=== PATIENT | male | born 1985 | race Caucasian/White ===

== ENCOUNTER 2017-08-30 16:52 | Observation (INO) | payer MEDICAID ==
[2017-08-30] MEDS ORDERED: Ketorolac 30 MG/ML SDV IVPUSH PRN (18:34)
[2017-08-30] MEDS ORDERED: Ondansetron 4 MG/2 ML SDV IV PRN (18:34)
[2017-08-30] MEDS ORDERED: Atropine/Diphenoxylate 0.025-2.5 MG Tab PO PRN (18:41)
[2017-08-30] MEDS ORDERED: Dextrose 5%-0.45% NaCl 1,000 ML IV SCH (18:45)
[2017-08-30] MEDS: Dextrose 5%-0.9% NaCl 1,000 ML IV SCH (19:20)
[2017-08-30] MEDS: Potassium Bicarbonate/Potassium Chloride 25 MEQ Tab.Eff PO SCH (19:20)
[2017-08-30] MEDS: Omeprazole 20 MG Cap.CR PO SCH (19:20)
[2017-08-31] MEDS: Dextrose 5%-0.9% NaCl 1,000 ML IV SCH (05:30)
[2017-08-31 05:41] VITALS: BP 110/71
[2017-08-31 07:54] LABS: CHLORIDE,CL 108 mmol/L (98-115); SODIUM,NA 143 mmol/L (136-145)
[2017-08-31] MEDS: Omeprazole 20 MG Cap.CR PO SCH (09:52)
[2017-08-31] MEDS: Potassium Bicarbonate/Potassium Chloride 25 MEQ Tab.Eff PO SCH (09:52)
--- NOTE | 2017-09-06 08:15 | DISCH ---
DISCHARGE DIAGNOSIS: Gastroenteritis/hypokalemia/hyponatremia, improved. BRIEF HOSPITAL COURSE: The patient was admitted from the clinical setting to Observation due to gastroenteritis symptoms. He had complained of nausea, diarrhea, chills, and generalized abdominal pain along with achiness. He had received IV fluids along with electrolyte replacement during his hospital course. By 08/31/2017, his symptoms had improved. He offers that his diarrhea symptoms were minimal in the a.m. of 08/31/2017. He had no complications. DISCHARGE MEDICATIONS: Includes hydrocodone/APAP, Neurontin, Lexapro, diclofenac, Cytotec, and Lomotil as needed. LABS AND DIAGNOSTICS: He did have a panel initially done, which revealed that his sodium and potassium were low. His followup lab work prior to discharge revealed a sodium of 143 and a potassium of 3.7. PHYSICAL EXAMINATION: HEENT: Negative. RESPIRATORY: Lung sounds are clear to auscultation. CARDIOVASCULAR: Heart rate and rhythm are regular. S1, S2. ABDOMEN: Soft, minimal tenderness to touch. Bowel sounds are present. MUSCULOSKELETAL: The patient does have some mild muscle achiness which persist from his illness. SKIN: Warm and dry to touch. DISCHARGE AND DISPOSITION: This patient will be discharged to home with resolution of his gastroenteritis, hyponatremia, and hypokalemia. He will continue with his current medications as previously stated, and he was instructed to follow up with his primary care provider. /[id number]/[id number]
== END 2017-08-31 11:07 | disposition home or self-care (01) ==
LOC: KA.MS 17:45
PROVIDERS: ADMIT Family Medicine; ATTEND Family Medicine
DX: K52.9 Noninfective gastroenteritis and colitis, unspecified (principal); E87.6 Hypokalemia; E87.1 Hypo-osmolality and hyponatremia; Z79.899 Other long term (current) drug therapy; Z98.890 Other specified postprocedural states; Z87.891 Personal history of nicotine dependence
CPT/HCPCS: 36415; 80053; 83630; 96361; 96374; A9270; G0378; J1885; J7042